=== PATIENT | female | born 1995 | race Caucasian/White ===

== ENCOUNTER 2017-05-07 01:15 | Emergency (ER) | payer SELFPAY ==
[2017-05-07] MEDS ORDERED: HYDROCODONE/ACETAMINOPHEN 5-325 MG 6 TAB/DSPK PO PRN (02:08)
[2017-05-07] MEDS ORDERED: DIPH/PERTUSS(ACELL)/TETANUS VAC/PF 0.5 ML SYR (>=10YO) IM ONE (02:08)
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
[2017-05-07 02:17] VITALS: BP 106/59
--- NOTE | 2017-05-07 02:21 | RADIOLOGY REPORT (SQ) ---
EXAM DESCRIPTION: HAND RIGHT 3 VIEWS COMPLETED DATE/TIME: 05/07/2017 2:03 am REASON FOR STUDY: pain s/p injury COMPARISON: None. EXAM PARAMETERS: NUMBER OF VIEWS: Three views. TECHNIQUE: AP, lateral and oblique radiographic images acquired of the right hand. LIMITATIONS: None. FINDINGS: MINERALIZATION: Normal. BONES: No acute fracture or dislocation. No worrisome bone lesions. JOINTS: No effusions. SOFT TISSUES: No soft tissue swelling. No foreign body. OTHER: No other significant finding. IMPRESSION: NEGATIVE STUDY OF THE RIGHT HAND. NO RADIOGRAPHIC EVIDENCE OF ACUTE INJURY. TECHNICAL DOCUMENTATION: JOB ID: [id number] [email or web address]- All Rights Reserved
== END 2017-05-07 02:25 | disposition home or self-care (01) ==
LOC: ER 01:15
DX: S60.221A Contusion of right hand, initial encounter (principal); W22.09XA Striking against other stationary object, initial encounter; Y92.009 Unspecified place in unspecified non-institutional (private) residence as the place of occurrence of the external cause; F17.200 Nicotine dependence, unspecified, uncomplicated; Z23 Encounter for immunization
CPT/HCPCS: 90471; 90715; 99283

== ENCOUNTER 2017-09-28 03:35 | Emergency (ER) | payer OTHER ==
[2017-09-28] MEDS ORDERED: LIDOCAINE 1%/EPINEPHRINE INJ 20 ML VIAL INJ ONE (04:23)
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
[2017-09-28] MEDS ORDERED: HYDROCODONE/ACETAMINOPHEN 5-325 MG 6 TAB/DSPK PO PRN (06:29)
[2017-09-28] MEDS ORDERED: CEPHALEXIN 500 MG CAPSULE PO ONE (06:29)
[2017-09-28 06:59] VITALS: BP 119/69
== END 2017-09-28 06:59 | disposition home or self-care (01) ==
LOC: ER 03:35
PROC: 0HQKXZZ Repair Right Lower Leg Skin, External Approach (ICD-10-PCS; principal; 2017-09-28)
DX: S81.011A Laceration without foreign body, right knee, initial encounter (principal); F17.200 Nicotine dependence, unspecified, uncomplicated; V89.2XXA Person injured in unspecified motor-vehicle accident, traffic, initial encounter
CPT/HCPCS: 99283; 73090; 73560; 12002; J3490

== ENCOUNTER 2017-10-05 14:26 | Emergency (ER) | payer OTHER ==
[2017-10-05 15:33] VITALS: BP 111/65
--- NOTE | 2017-10-05 15:33 | ER Document Report ---
ED Suture/Wound Recheck - General Chief Complaint: Wound Recheck Stated Complaint: SUTURE REMOVAL Time Seen by Provider: 10/05/17 15:18 Mode of Arrival: Ambulatory Information source: Patient Notes: 22-year-old female presented to ED for suture removal. It is been 7 days since her sutures were placed into her knee and they are not yet ready to be removed. Patient was instructed to please return on the 30th for her suture removal. TRAVEL OUTSIDE OF THE [place] IN LAST 30 DAYS: No - HPI Previous ED treatment: Laceration repair Antibiotics given previously: Prescription Quality of pain: No pain Severity: None Pain Level: Denies Context: Injury Symptoms since procedure: No complaints Exacerbated by: Walking Relieved by: Denies - Related Data Allergies/Adverse Reactions: No Known Allergies Allergy (Unverified 09/28/17 04:04) Past Medical History - General Information source: Patient - Social History Smoking Status: Current Every Day Smoker Cigarette use (# per day): Yes Smoking Education Provided: Yes - Less than 2 minutes Frequency of alcohol use: Social Drug Abuse: None Family History: Reviewed & Not Pertinent Patient has suicidal ideation: No Patient has homicidal ideation: No - Past Medical History Cardiac Medical History: Reports: None Pulmonary Medical History: Reports: None EENT Medical History: Reports: None Neurological Medical History: Reports: None Endocrine Medical History: Reports: None Renal/ Medical History: Reports: None Malignancy Medical History: Reports: None GI Medical History: Reports: None Musculoskeltal Medical History: Reports None Skin Medical History: Reports None Psychiatric Medical History: Reports: None Traumatic Medical History: Reports: None Infectious Medical History: Reports: None Surgical Hx: Negative Past Surgical History: Reports: None - Immunizations Hx Diphtheria, Pertussis, Tetanus Vaccination: Yes Review of Systems - Review of Systems Constitutional: No symptoms reported EENT: No symptoms reported Cardiovascular: No symptoms reported Respiratory: No symptoms reported Gastrointestinal: No symptoms reported Genitourinary: No symptoms reported Female Genitourinary: No symptoms reported Musculoskeletal: No symptoms reported Skin: Other - Healing laceration to the right knee. We will needs further healing before sutures are removed. Patient instructed to return on the 30th Hematologic/Lymphatic: No symptoms reported Neurological/Psychological: No symptoms reported Physical Exam - Vital signs Vitals: Temp Pulse Resp BP Pulse Ox 98.2 F 84 16 111/65 99 10/05/17 15:30 10/05/17 15:30 10/05/17 15:30 10/05/17 15:30 10/05/17 15:30 Interpretation: Normal - General General appearance: Appears well, Alert - HEENT Head: Normocephalic, Atraumatic Eyes: Normal Pupils: PERRL - Respiratory Respiratory status: No respiratory distress Chest status: Nontender Breath sounds: Normal Chest palpation: Normal - Cardiovascular Rhythm: Regular Heart sounds: Normal auscultation Murmur: No - Abdominal Inspection: Normal Distension: No distension Bowel sounds: Normal Tenderness: Nontender Organomegaly: No organomegaly - Back Back: Normal, Nontender - Extremities General upper extremity: Normal inspection, Nontender, Normal color, Normal ROM , Normal temperature General lower extremity: Nontender, Normal temperature, Normal weight bearing. No: Sara's sign Knee: Tender, Ecchymosis - . Sutures are not yet ready to come out., Laceration - In the process of healing well approximated no redness no signs of drainage or infection, Pain with ROM - Neurological Neuro grossly intact: Yes Cognition: Normal Orientation: AAOx4 Corrigan Coma Scale Eye Opening: Spontaneous Susanna Coma Scale Verbal: Oriented Susanna Coma Scale Motor: Obeys Commands Susanna Coma Scale Total: 15 Speech: Normal Motor strength normal: LUE, RUE, LLE, RLE Sensory: Normal - Psychological Associated symptoms: Normal affect, Normal mood - Skin Skin Temperature: Warm Skin Moisture: Dry Skin Color: Normal Course - Vital Signs Vital signs: Temp Pulse Resp BP Pulse Ox 98.2 F 84 16 111/65 99 10/05/17 15:30 10/05/17 15:30 10/05/17 15:30 10/05/17 15:30 10/05/17 15:30 Discharge - Discharge Clinical Impression: Encounter for wound re-check Condition: Stable Disposition: HOME, SELF-CARE Additional Instructions: Was seen today for wound recheck to your right knee laceration. The sutures are not ready to come out and she had I do not think it would be a good plan to take them out. Continue to clean and carefully alone as your previous MD instructed you and we will see you again on the for suture removal. SOAP CLEANSING: Gently wash the wound daily using a mild soap (like Ivory, Phisoderm, Neutrogena). Use warm water, rubbing gently until all debris, ooze, and crusting have been washed from the wound. Allow to dry briefly (about 10 minutes) after cleaning. Repeat this cleansing at least three times a day for the first two days and then once or twice a day. ANTIBIOTIC OINTMENT PROTECTION: Your wounds are such that dressing them is not practical or optional. After cleansing, you should apply a thin coating of antibiotic ointment ( Bacitracin, not Neosporin) to the wounds at least three times daily. This lessens infection risk, and may decrease the amount of scarring. Use a q-tip or dull butter knife, not your finger, to apply this ointment. Any debris or ooze which builds up in the ointment should be gently rubbed off with a sterile gauze pad. Harder crusting may need to be gently scrubbed off with a clean wash cloth with soap and warm water, perhaps applying a warm, wet wash cloth to the wound for ten minutes first. Development of redness, severe itching, or blistering may mean allergy to the ointment. See the doctor. FOLLOW-UP CARE: Your sutures should be removed on October 08, 2017 To facilitate a timely removal of your sutures, you may return to the Emergency Department at [facility]. You do not need to call for an appointment, but the best time to come in for suture removal is early in the morning. If you have been referred to another physician for follow-up care, call that physicians office for an appointment as you were instructed. If you experience a significant change in your laceration, or if you are concerned there may be an infection (swelling, redness, drainage, increasing tenderness, red streaks, tender lumps in the armpit or groin above the laceration, or fever) , return to the Emergency Department immediately re-evaluation. Forms: Smoking Cessation Education
== END 2017-10-05 15:40 | disposition home or self-care (01) ==
LOC: ER 14:26
DX: S81.011D Laceration without foreign body, right knee, subsequent encounter (principal); X58.XXXD Exposure to other specified factors, subsequent encounter

== ENCOUNTER 2017-10-08 16:30 | Emergency (ER) | payer OTHER ==
[2017-10-08 16:36] VITALS: BP 120/60
--- NOTE | 2017-10-08 17:07 | ER Document Report ---
ED Medical Screen (RME) - General Chief Complaint: Suture Removal Stated Complaint: SUTURE REMOVAL Time Seen by Provider: 10/08/17 17:03 Mode of Arrival: Ambulatory Information source: Patient TRAVEL OUTSIDE OF THE [place] IN LAST 30 DAYS: No - Related Data Allergies/Adverse Reactions: No Known Allergies Allergy (Unverified 09/28/17 04:04) Past Medical History - Social History Chew tobacco use (# tins/day): No Frequency of alcohol use: Social Drug Abuse: None Renal/ Medical History: Denies: Hx Peritoneal Dialysis - Immunizations Hx Diphtheria, Pertussis, Tetanus Vaccination: Yes Physical Exam - Vital signs Vitals: Temp Pulse Resp BP Pulse Ox 98.2 F 89 20 120/60 96 10/08/17 16:34 10/08/17 16:34 10/08/17 16:34 10/08/17 16:34 10/08/17 16:34 Interpretation: Normal - Extremities General upper extremity: Normal inspection General lower extremity: No: Normal inspection - HEALING WOUND R. PRE-PATELLAR AREA. - Skin Skin Temperature: Warm Skin Moisture: Dry Skin Color: Normal Skin Turgor: Elastic Notes: WOUND LOOKS GOOD, NO SIGN OF INFECTION. HEALING NOT YET ADEQUATE FOR SUTURE REMOVAL. Course - Vital Signs Vital signs: Temp Pulse Resp BP Pulse Ox 98.2 F 89 20 120/60 96 10/08/17 16:34 10/08/17 16:34 10/08/17 16:34 10/08/17 16:34 10/08/17 16:34 Doctor's Discharge - Discharge Clinical Impression: Encounter for wound re-check Condition: Stable Disposition: HOME, SELF-CARE Instructions: Elevate the Injury ([facility]) Additional Instructions: CONTINUE KEEPING WOUND CLEAN AND COVERED. YOU MAY TAKE IBUPROFEN IF NEEDED FOR PAIN. YOU MAY USE AN ELASTIC BANDAGE IF IT IS HELPFUL. FOLLOW UP OCTOBER 13 OR FOR SUTURE REMOVAL.
== END 2017-10-08 17:16 | disposition home or self-care (01) ==
LOC: ER 16:30
DX: Z48.02 Encounter for removal of sutures (principal)
CPT/HCPCS: 99282